=== PATIENT | male | born 1950 | race Caucasian/White ===

== ENCOUNTER 2020-12-03 11:32 | Inpatient (IN) ==
[2020-12-03] MEDS ORDERED: *HR* OxyCODONE/APAP 5/325 TABLET PO ONE (15:30)
[2020-12-03] MEDS ORDERED: hydrALAZINE 10 MG TABLET PO PRN (17:52)
[2020-12-03] MEDS: 0.9 % Sodium Chloride 1,000 ML IVC SCH (18:29)
[2020-12-03] MEDS: *HR* FentaNYL (PF) 100 MCG/2 ML VIAL IVP PRN (18:29)
[2020-12-03] MEDS ORDERED: Perflutren Lipid Microsphere 1.3 ML in 0.9 % Sodium Chloride 8.7 ML IVP PRN (18:31)
[2020-12-03] MEDS ORDERED: amLODIPine 5 MG TABLET PO SCH (18:45)
[2020-12-04] MEDS: *HR* Heparin 5,000 UNIT/ML VIAL SQ SCH ×3 (01:10→16:55)
[2020-12-04] MEDS ORDERED: *HR* OxyCODONE/APAP 5/325 TABLET PO ONE (01:23)
[2020-12-04] MEDS: 0.9 % Sodium Chloride 1,000 ML IVC SCH ×3 (03:24→22:40)
[2020-12-04 05:12] LABS: Basophils % 0.2 %; Hematocrit 36.2 % (37.5-50.1); Hemoglobin 11.4 g/dL (12.9-16.9); Immature Granulocytes % 0.5 % (0-4); Lymphocytes # 0.6 K/mcL (0.6-4.6); Lymphocytes % 6.8 %; Mean Corpuscular HGB Conc 31.5 g/dL (31.6-35.5); Mean Corpuscular Hemoglobin 25.7 pg (28.0-33.3); Mean Corpuscular Volume 81.7 fL (83.0-100.0); Mean Platelet Volume 9.8 fL (9.4-12.4); Monocytes # 0.3 K/mcL (0.0-1.3); Monocytes % 3.6 %; Neutrophils # 7.8 K/mcL (1.6-8.9); Platelet Count 148 K/mcL (140-400); Red Blood Count 4.43 M/mcL (4.19-5.50); Red Cell Distribution Width 15.2 % (11.5-14.5); Segmented Neutrophils % 88.9 %; White Blood Count 8.8 K/mcL (4.3-11.1)
[2020-12-04 05:26] LABS: BUN/Creatinine Ratio 23 (6-26); Blood Urea Nitrogen 19 mg/dL (8-23); Calcium 7.8 mg/dL (8.6-10.3); Carbon Dioxide 21 mEq/L (23-29); Chloride 107 mEq/L (98-107); Glucose 98 mg/dL (70-105); Osmolality,Calculated 286 (280-300); Phosphorous 3.1 mg/dL (2.7-4.5); Potassium 3.7 mEq/L (3.5-5.1); Sodium 137 mEq/L (136-145); eGFR For African Americans > 60 (> 60); eGFR For Non-African Americans > 60 (> 60)
[2020-12-04] MEDS ORDERED: atenoloL 25 MG TABLET PO SCH (09:00)
[2020-12-04] MEDS ORDERED: cloNIDine HCL 0.1 MG TABLET PO PRN (09:00)
[2020-12-04] MEDS ORDERED: amLODIPine 5 MG TABLET PO SCH (09:00)
[2020-12-04] MEDS ORDERED: Perflutren Lipid Microsphere 1.3 ML in 0.9 % Sodium Chloride 8.7 ML IVP PRN (09:01)
[2020-12-04] MEDS: *HR* FentaNYL (PF) 100 MCG/2 ML VIAL IVP PRN (10:58)
[2020-12-04] MEDS ORDERED: Petrolatum, White OINT.PACK TP PRN ×2 (15:59→19:47)
[2020-12-04] MEDS ORDERED: Famotidine 20 MG/2 ML VIAL ONE (17:24)
[2020-12-04] MEDS ORDERED: Acetaminophen IV 1,000 MG/100 ML BAG IVPB ONE (17:24)
[2020-12-04] MEDS ORDERED: Lidocaine -MPF 2% 2 ML VIAL ONE (17:30)
[2020-12-04] MEDS ORDERED: *HR* FentaNYL (PF) 100 MCG/2 ML VIAL ONE ×2 (17:30→18:20)
[2020-12-04] MEDS ORDERED: Dexamethasone 4 MG/ML VIAL ONE (17:30)
[2020-12-04] MEDS ORDERED: Ondansetron 4 MG/2 ML VIAL ONE (17:30)
[2020-12-04] MEDS ORDERED: *HR* Propofol 200 MG/20 ML VIAL IVP ONE (17:31)
[2020-12-04] MEDS ORDERED: EPHEDrine 50 MG/ML VIAL ONE (18:02)
[2020-12-04] MEDS ORDERED: ceFAZolin 2,000 MG in 0.9 % Sodium Chloride 100 ML IVPB ONE (18:16)
[2020-12-04 19:28] LABS: Hematocrit 25.3 % (37.5-50.1)
[2020-12-04 19:29] LABS: Hemoglobin 8.1 g/dL (12.9-16.9)
[2020-12-04] MEDS ORDERED: Naloxone 0.4 MG/ML INJ IVP PRN (19:47)
[2020-12-05] MEDS: *HR* OxyCODONE/APAP 5/325 TABLET PO PRN (00:19)
[2020-12-05] MEDS: CeFAZolin 2 GM/120 ML BAG IVPB SCH ×2 (00:25→07:52)
[2020-12-05 07:23] LABS: Hematocrit 34.5 % (37.5-50.1); Hemoglobin 10.9 g/dL (12.9-16.9)
[2020-12-05 07:43] LABS: BUN/Creatinine Ratio 25 (6-26); Blood Urea Nitrogen 18 mg/dL (8-23); Calcium 7.6 mg/dL (8.6-10.3); Carbon Dioxide 24 mEq/L (23-29); Chloride 105 mEq/L (98-107); Glucose 102 mg/dL (70-105); Osmolality,Calculated 284 (280-300); Potassium 3.8 mEq/L (3.5-5.1); Sodium 136 mEq/L (136-145); eGFR For African Americans > 60 (> 60); eGFR For Non-African Americans > 60 (> 60)
[2020-12-05] MEDS: atenoloL 25 MG TABLET PO SCH (07:53)
[2020-12-05] MEDS: amLODIPine 5 MG TABLET PO SCH (07:53)
[2020-12-05] MEDS: 0.9 % Sodium Chloride 1,000 ML IVC SCH (13:26)
[2020-12-05] MEDS: *HR* OxyCODONE Immed Rel 5 MG TABLET PO PRN (15:37)
[2020-12-05] MEDS: Aspirin Enteric Coated 81 MG Tablet PO SCH (15:37)
[2020-12-06 01:12] LABS: Hematocrit 32.2 % (37.5-50.1); Hemoglobin 10.5 g/dL (12.9-16.9); Mean Corpuscular HGB Conc 32.6 g/dL (31.6-35.5); Mean Corpuscular Hemoglobin 26.9 pg (28.0-33.3); Mean Corpuscular Volume 82.4 fL (83.0-100.0); Mean Platelet Volume 10.1 fL (9.4-12.4); Platelet Count 131 K/mcL (140-400); Red Blood Count 3.91 M/mcL (4.19-5.50); Red Cell Distribution Width 15.3 % (11.5-14.5); White Blood Count 7.9 K/mcL (4.3-11.1)
[2020-12-06 01:26] LABS: BUN/Creatinine Ratio 24 (6-26); Blood Urea Nitrogen 18 mg/dL (8-23); Calcium 7.3 mg/dL (8.6-10.3); Carbon Dioxide 25 mEq/L (23-29); Chloride 106 mEq/L (98-107); Glucose 96 mg/dL (70-105); Osmolality,Calculated 286 (280-300); Potassium 3.2 mEq/L (3.5-5.1); Sodium 137 mEq/L (136-145); eGFR For African Americans > 60 (> 60); eGFR For Non-African Americans > 60 (> 60)
[2020-12-06] MEDS: *HR* OxyCODONE/APAP 5/325 TABLET PO PRN (04:16)
[2020-12-06] MEDS ORDERED: Potassium Chloride 20 MEQ, Lidocaine 1% 2 ML in 0.9 % Sodium Chloride 250 ML IVPB ONE (07:55)
[2020-12-06] MEDS ORDERED: Potassium Chloride Elixir 20 MEQ/15 ML UDC PO SCH (08:45)
[2020-12-06] MEDS: amLODIPine 5 MG TABLET PO SCH (09:00)
[2020-12-06] MEDS: Aspirin Enteric Coated 81 MG Tablet PO SCH (09:00)
[2020-12-06] MEDS: atenoloL 25 MG TABLET PO SCH (09:01)
[2020-12-06 11:03] VITALS: BP 117/64
[2020-12-06 13:43] LABS: Adenovirus Not Detected (Not Detect); Bordetella Pertussis Not Detected (Not Detect); Chlamydophila pneumoniae Not Detected (Not Detect); Coronavirus 229E Not Detected (Not Detect); Coronavirus HKU1 Not Detected (Not Detect); Coronavirus NL63 Not Detected (Not Detect); Coronavirus OC43 Not Detected (Not Detect); Human Metapneumovirus Not Detected (Not Detect); Human Rhinovirus/Enterovirus Not Detected (Not Detect); Influenza A Subtype 2009 H1 Not Detected (Not Detect); Influenza B Not Detected (Not Detect); Mycoplasma pneumoniae Not Detected (Not Detect); Parainfluenza Virus 1 Not Detected (Not Detect); Parainfluenza Virus 2 Not Detected (Not Detect); Parainfluenza Virus 3 Not Detected (Not Detect); Parainfluenza Virus 4 Not Detected (Not Detect); Respiratory Syncytial Virus Not Detected (Not Detect); SARS-CoV-2 Not Detected (Not Detect)
[2020-12-06] MEDS: *HR* OxyCODONE Immed Rel 5 MG TABLET PO PRN (14:46)
== END 2020-12-06 14:59 | DRG 481 ==
LOC: 3NENU
PROVIDERS: ADMIT Orthopaedic Surgery; ATTEND Orthopaedic Surgery

== ENCOUNTER 2022-05-13 14:24 | Observation (INO) ==
[2022-05-13] MEDS ORDERED: Perflutren Lipid Microsphere 1.3 ML in 0.9 % Sodium Chloride 8.7 ML IVP PRN (15:28)
[2022-05-13] MEDS ORDERED: Ondansetron 4 MG/2 ML VIAL IVP PRN (16:30)
[2022-05-13] MEDS ORDERED: Naloxone 0.4 MG/ML INJ IVP PRN (16:30)
[2022-05-13] MEDS ORDERED: *HR* Labetalol 20 MG/4 ML SYRINGE IVP PRN (16:33)
[2022-05-13] MEDS: Acetaminophen 325 MG TABLET PO PRN (22:27)
[2022-05-14] MEDS: Melatonin 3 MG TABLET PO PRN ×2 (00:29→19:45)
[2022-05-14 08:09] LABS: Basophils # 0.1 K/mcL (0.0-0.2); Basophils % 1.1 %; Eosinophils % 0.6 %; Hematocrit 43.8 % (37.5-50.1); Hemoglobin 13.9 g/dL (12.9-16.9); Immature Granulocytes % 0.2 % (0-4); Lymphocytes # 1.1 K/mcL (0.6-4.6); Lymphocytes % 23.1 %; Mean Corpuscular HGB Conc 31.7 g/dL (31.6-35.5); Mean Corpuscular Hemoglobin 26.3 pg (28.0-33.3); Mean Corpuscular Volume 82.8 fL (83.0-100.0); Mean Platelet Volume 9.9 fL (9.4-12.4); Monocytes # 0.3 K/mcL (0.0-1.3); Monocytes % 6.2 %; Neutrophils # 3.2 K/mcL (1.6-8.9); Platelet Count 178 K/mcL (140-400); Red Blood Count 5.29 M/mcL (4.19-5.50); Red Cell Distribution Width 15.4 % (11.5-14.5); Segmented Neutrophils % 68.8 %; White Blood Count 4.7 K/mcL (4.3-11.1)
[2022-05-14 08:19] LABS: INR 1.1; Prothrombin Time 11.8 Seconds (9.4-12.1)
[2022-05-14 08:28] LABS: Chol/HDL Ratio 3.8 (0-4.9)
[2022-05-14 08:29] LABS: BUN/Creatinine Ratio 16 (6-26); Blood Urea Nitrogen 14 mg/dL (8-23); Calcium 8.9 mg/dL (8.6-10.3); Carbon Dioxide 23 mEq/L (23-29); Chloride 102 mEq/L (98-107); Glucose 85 mg/dL (70-105); Osmolality,Calculated 282 (280-300); Potassium 3.8 mEq/L (3.5-5.1); Sodium 136 mEq/L (136-145); eGFR For African Americans > 60 (> 60); eGFR For Non-African Americans > 60 (> 60)
[2022-05-14 08:52] LABS: Folate 8.3 ng/mL (3.0-16.0)
[2022-05-14] MEDS: Aspirin Enteric Coated 81 MG Tablet PO SCH (08:56)
[2022-05-14 10:42] LABS: Estimated Average Glucose 117 mg/dl; Hemoglobin A1C 5.7 %
[2022-05-14] MEDS: atenoloL 25 MG TABLET PO SCH ×2 (14:43→14:48)
[2022-05-14] MEDS: Acetaminophen 325 MG TABLET PO PRN (19:45)
[2022-05-15 03:22] VITALS: O2SAT 100
[2022-05-15 06:10] LABS: Basophils % 0.4 %; Eosinophils # 0.1 K/mcL (0.0-0.6); Eosinophils % 1.1 %; Hematocrit 38.8 % (37.5-50.1); Hemoglobin 12.9 g/dL (12.9-16.9); Immature Granulocytes % 0.2 % (0-4); Lymphocytes % 22.2 %; Mean Corpuscular HGB Conc 33.2 g/dL (31.6-35.5); Mean Corpuscular Volume 81.3 fL (83.0-100.0); Mean Platelet Volume 9.9 fL (9.4-12.4); Monocytes # 0.4 K/mcL (0.0-1.3); Monocytes % 7.7 %; Neutrophils # 3.2 K/mcL (1.6-8.9); Platelet Count 155 K/mcL (140-400); Red Blood Count 4.77 M/mcL (4.19-5.50); Red Cell Distribution Width 15.5 % (11.5-14.5); Segmented Neutrophils % 68.4 %; White Blood Count 4.7 K/mcL (4.3-11.1)
[2022-05-15 06:29] LABS: BUN/Creatinine Ratio 24 (6-26); Blood Urea Nitrogen 25 mg/dL (8-23); Calcium 8.5 mg/dL (8.6-10.3); Carbon Dioxide 24 mEq/L (23-29); Chloride 104 mEq/L (98-107); Glucose 99 mg/dL (70-105); Osmolality,Calculated 284 (280-300); Potassium 4.1 mEq/L (3.5-5.1); Sodium 135 mEq/L (136-145); eGFR For African Americans > 60 (> 60); eGFR For Non-African Americans > 60 (> 60)
[2022-05-15] MEDS: atenoloL 25 MG TABLET PO SCH (08:28)
[2022-05-15] MEDS: Aspirin Enteric Coated 81 MG Tablet PO SCH (08:28)
[2022-05-15 09:53] VITALS: PULSE 69; TEMP 97.5
[2022-05-15 10:56] VITALS: BP 166/80
== END 2022-05-15 12:51 | disposition home or self-care (01) ==
LOC: 3BNU 14:24 → EMEROOARM 14:24 → 3BNU 18:43
PROVIDERS: ADMIT Internal Medicine; ATTEND Internal Medicine

== ENCOUNTER 2022-05-19 16:15 | Inpatient (IN) ==
[2022-05-19] MEDS ORDERED: Naloxone 0.4 MG/ML INJ IVP PRN (18:11)
[2022-05-19] MEDS ORDERED: Ondansetron 4 MG/2 ML VIAL IVP PRN (18:11)
[2022-05-19] MEDS: Acetaminophen 325 MG TABLET PO PRN (22:18)
[2022-05-19 22:32] LABS: Bilirubin,Urine Negative (Negative); Blood,Urine Trace (Negative); Clarity,Urine Clear (Clear); Color,Urine Yellow (Yellow); Glucose,Urine (UA) Normal (Normal); Hyaline Casts,Urine Many per lpf (None Seen); Ketones,Urine Trace mg/dL (Negative); Leukocyte Esterase,Urine Negative (Negative); Mucus,Urine Few per lpf (None-Few); Nitrite,Urine Negative (Negative); PH,Urine 5.5 pH Units (5.0-8.0); Protein,Urine 30 mg/dL (Neg-Trace); Specific Gravity,Urine 1.028 (1.010-1.025); Squamous Epithelial Cell,Urine Few per hpf (None-Few); WBC,Urine 0-3 per hpf (0-3)
[2022-05-20] MEDS ORDERED: 0.9 % Sodium Chloride 500 ML IVC ONE (02:22)
[2022-05-20 05:46] LABS: Basophils % 0.7 %; Eosinophils # 0.1 K/mcL (0.0-0.6); Eosinophils % 1.6 %; Hematocrit 39.5 % (37.5-50.1); Hemoglobin 13.1 g/dL (12.9-16.9); Immature Granulocytes % 0.3 % (0-4); Lymphocytes # 1.1 K/mcL (0.6-4.6); Lymphocytes % 17.6 %; Mean Corpuscular HGB Conc 33.2 g/dL (31.6-35.5); Mean Corpuscular Hemoglobin 27.2 pg (28.0-33.3); Mean Platelet Volume 10.2 fL (9.4-12.4); Monocytes # 0.5 K/mcL (0.0-1.3); Monocytes % 7.4 %; Neutrophils # 4.4 K/mcL (1.6-8.9); Platelet Count 173 K/mcL (140-400); Red Blood Count 4.82 M/mcL (4.19-5.50); Red Cell Distribution Width 15.2 % (11.5-14.5); Segmented Neutrophils % 72.4 %; White Blood Count 6.1 K/mcL (4.3-11.1)
[2022-05-20 06:00] LABS: INR 1.2; Prothrombin Time 13.5 Seconds (9.4-12.1)
[2022-05-20 06:04] LABS: BUN/Creatinine Ratio 31 (6-26); Blood Urea Nitrogen 29 mg/dL (8-23); Calcium 8.3 mg/dL (8.6-10.3); Carbon Dioxide 24 mEq/L (23-29); Chloride 104 mEq/L (98-107); Glucose 88 mg/dL (70-105); Magnesium 2.1 mg/dL (1.6-2.6); Osmolality,Calculated 285 (280-300); Phosphorous 3.5 mg/dL (2.7-4.5); Potassium 3.8 mEq/L (3.5-5.1); Sodium 135 mEq/L (136-145); eGFR For African Americans > 60 (> 60); eGFR For Non-African Americans > 60 (> 60)
[2022-05-20 06:17] LABS: Thyroid Stimulating Hormone 4.334 mcIU/mL (0.340-5.600)
[2022-05-20] MEDS ORDERED: atenoloL 25 MG TABLET PO SCH (09:00)
[2022-05-20] MEDS ORDERED: *HR* Enoxaparin 30 MG/0.3 ML SYRINGE SQ SCH (09:00)
[2022-05-20] MEDS: Cyanocobalamin (B-12) 1,000 MCG TABLET PO SCH (09:18)
[2022-05-20] MEDS: Aspirin 81 MG TAB.CHEW PO SCH (09:18)
[2022-05-20] MEDS: Acetaminophen 325 MG TABLET PO PRN (18:13)
[2022-05-21] MEDS: Melatonin 3 MG TABLET PO SCH ×2 (01:19→20:05)
[2022-05-21 06:51] LABS: Basophils % 0.7 %; Eosinophils # 0.1 K/mcL (0.0-0.6); Hematocrit 39.2 % (37.5-50.1); Hemoglobin 12.7 g/dL (12.9-16.9); Immature Granulocytes % 0.2 % (0-4); Lymphocytes % 21.8 %; Mean Corpuscular HGB Conc 32.4 g/dL (31.6-35.5); Mean Corpuscular Volume 83.2 fL (83.0-100.0); Mean Platelet Volume 10.1 fL (9.4-12.4); Monocytes # 0.3 K/mcL (0.0-1.3); Neutrophils # 3.1 K/mcL (1.6-8.9); Platelet Count 178 K/mcL (140-400); Red Blood Count 4.71 M/mcL (4.19-5.50); Red Cell Distribution Width 15.1 % (11.5-14.5); Segmented Neutrophils % 68.3 %; White Blood Count 4.6 K/mcL (4.3-11.1)
[2022-05-21 07:10] LABS: Alanine Aminotransferase 6 Units/L (7-52); Albumin 3.7 g/dL (3.5-5.7); Albumin/Globulin Ratio 1.5 (1.1-2.2); Alkaline Phosphatase 59 Units/L (34-104); Aspartate Amino Transferase 11 Units/L (13-39); BUN/Creatinine Ratio 26 (6-26); Bilirubin,Total 0.8 mg/dL (0.3-1.0); Blood Urea Nitrogen 24 mg/dL (8-23); Carbon Dioxide 25 mEq/L (23-29); Chloride 105 mEq/L (98-107); Globulin 2.5 g/dL (2.4-3.5); Glucose 90 mg/dL (70-105); Osmolality,Calculated 288 (280-300); Potassium 3.9 mEq/L (3.5-5.1); Sodium 137 mEq/L (136-145); Total Protein 6.2 g/dL (6.4-8.9); eGFR For African Americans > 60 (> 60); eGFR For Non-African Americans > 60 (> 60)
[2022-05-21] MEDS ORDERED: *HR* Enoxaparin 40 MG/0.4 ML SYRINGE SQ SCH (09:00)
[2022-05-21] MEDS: Aspirin 81 MG TAB.CHEW PO SCH (09:28)
[2022-05-21] MEDS: Cyanocobalamin (B-12) 1,000 MCG TABLET PO SCH (09:29)
[2022-05-21] MEDS ORDERED: Albuterol 2.5 MG/3 ML NEBULIZER IH PRN (10:04)
[2022-05-21] MEDS ORDERED: *HR* FentaNYL (PF) 100 MCG/2 ML VIAL IVP PRN (10:04)
[2022-05-21] MEDS ORDERED: *HR* HYDROmorphone PF 0.5 MG/0.5 ML SYRINGE IVP PRN (10:04)
[2022-05-21] MEDS ORDERED: *HR* Labetalol 20 MG/4 ML SYRINGE IVP STA (13:35)
[2022-05-21] MEDS ORDERED: Perflutren Lipid Microsphere 1.3 ML in 0.9 % Sodium Chloride 8.7 ML IVP PRN (14:25)
[2022-05-21] MEDS: Acetaminophen 325 MG TABLET PO PRN (20:06)
[2022-05-22] MEDS ORDERED: Regadenoson 0.4 MG/5 ML SYRINGE IVP ONE (07:19)
[2022-05-22] MEDS: Cyanocobalamin (B-12) 1,000 MCG TABLET PO SCH (08:18)
[2022-05-22] MEDS: Aspirin 81 MG TAB.CHEW PO SCH (08:18)
[2022-05-22] MEDS: amLODIPine 5 MG TABLET PO SCH (08:18)
[2022-05-22 08:24] LABS: Basophils % 0.7 %; Eosinophils # 0.1 K/mcL (0.0-0.6); Hematocrit 42.2 % (37.5-50.1); Hemoglobin 13.9 g/dL (12.9-16.9); Immature Granulocytes % 0.3 % (0-4); Lymphocytes # 1.1 K/mcL (0.6-4.6); Mean Corpuscular HGB Conc 32.9 g/dL (31.6-35.5); Mean Corpuscular Hemoglobin 26.9 pg (28.0-33.3); Mean Corpuscular Volume 81.6 fL (83.0-100.0); Mean Platelet Volume 9.5 fL (9.4-12.4); Monocytes # 0.3 K/mcL (0.0-1.3); Monocytes % 5.5 %; Neutrophils # 4.5 K/mcL (1.6-8.9); Platelet Count 188 K/mcL (140-400); Red Blood Count 5.17 M/mcL (4.19-5.50); Segmented Neutrophils % 74.5 %
[2022-05-22 08:43] LABS: BUN/Creatinine Ratio 24 (6-26); Blood Urea Nitrogen 20 mg/dL (8-23); Calcium 8.4 mg/dL (8.6-10.3); Carbon Dioxide 21 mEq/L (23-29); Chloride 103 mEq/L (98-107); Glucose 90 mg/dL (70-105); Osmolality,Calculated 280 (280-300); Potassium 3.9 mEq/L (3.5-5.1); Sodium 134 mEq/L (136-145); eGFR For African Americans > 60 (> 60); eGFR For Non-African Americans > 60 (> 60)
[2022-05-22] MEDS ORDERED: amLODIPine 5 MG TABLET PO SCH (09:00)
[2022-05-22] MEDS: Melatonin 3 MG TABLET PO SCH (20:50)
[2022-05-23 06:15] LABS: BUN/Creatinine Ratio 19 (6-26); Blood Urea Nitrogen 17 mg/dL (8-23); Calcium 8.3 mg/dL (8.6-10.3); Carbon Dioxide 25 mEq/L (23-29); Chloride 103 mEq/L (98-107); Glucose 87 mg/dL (70-105); Osmolality,Calculated 283 (280-300); Sodium 136 mEq/L (136-145); eGFR For African Americans > 60 (> 60); eGFR For Non-African Americans > 60 (> 60)
[2022-05-23] MEDS ORDERED: Sennosides/Docusate Sodium TABLET PO ONE (07:34)
[2022-05-23] MEDS ORDERED: polyethylene glycoL 3350 17 GM POWD.PACK PO PRN (07:34)
[2022-05-23] MEDS: amLODIPine 5 MG TABLET PO SCH (08:58)
[2022-05-23] MEDS: Aspirin 81 MG TAB.CHEW PO SCH (08:58)
[2022-05-23] MEDS: Cyanocobalamin (B-12) 1,000 MCG TABLET PO SCH (08:58)
[2022-05-23] MEDS: Melatonin 3 MG TABLET PO SCH (20:49)
[2022-05-23] MEDS: Acetaminophen 325 MG TABLET PO PRN (20:49)
[2022-05-24] MEDS ORDERED: amLODIPine 5 MG TABLET PO SCH (09:00)
[2022-05-24] MEDS: Cyanocobalamin (B-12) 1,000 MCG TABLET PO SCH (09:12)
[2022-05-24] MEDS: Aspirin 81 MG TAB.CHEW PO SCH (09:12)
[2022-05-24 10:36] LABS: BUN/Creatinine Ratio 21 (6-26); Blood Urea Nitrogen 19 mg/dL (8-23); Calcium 8.7 mg/dL (8.6-10.3); Carbon Dioxide 26 mEq/L (23-29); Chloride 98 mEq/L (98-107); Glucose 90 mg/dL (70-105); Osmolality,Calculated 280 (280-300); Sodium 134 mEq/L (136-145); eGFR For African Americans > 60 (> 60); eGFR For Non-African Americans > 60 (> 60)
[2022-05-24] MEDS ORDERED: *HR* Meperidine 25 MG/ML SYRINGE IVP PRN (15:58)
[2022-05-24] MEDS ORDERED: *HR* HYDROmorphone PF 0.5 MG/0.5 ML SYRINGE IVP PRN (15:58)
[2022-05-24] MEDS ORDERED: flumazeniL 0.5 MG/5 ML VIAL IVP PRN (15:58)
[2022-05-24] MEDS ORDERED: Albuterol 2.5 MG/3 ML NEBULIZER IH PRN (15:58)
[2022-05-24] MEDS ORDERED: Racepinephrine Neb 0.5 ML VIAL IH PRN (15:58)
[2022-05-24] MEDS ORDERED: Ondansetron 4 MG/2 ML VIAL IVP PRN (15:58)
[2022-05-24] MEDS ORDERED: *HR* FentaNYL (PF) 100 MCG/2 ML VIAL IVP PRN (15:58)
[2022-05-24] MEDS ORDERED: Ipratropium Neb 0.5 MG NEBULIZER IH PRN (15:58)
[2022-05-24] MEDS ORDERED: CeFAZolin Syr 2,000MG/20 ML 2,000 MG/20 ML SYRINGE IVPB ONE (16:23)
[2022-05-24] MEDS ORDERED: Ringers Solution, Lactated 1,000 ML IVC SCH (16:30)
[2022-05-24] MEDS ORDERED: Iopamidol - 300 50 ML VIAL ONE (16:35)
[2022-05-24] MEDS ORDERED: *HR* Propofol 200 MG/20 ML VIAL IVP ONE (18:25)
[2022-05-24] MEDS ORDERED: *HR* Rocuronium Bromide 50 MG/5 ML VIAL ONE (18:25)
[2022-05-24] MEDS ORDERED: Sugammadex Sodium 200 MG/2 ML VIAL IV ONE (18:25)
[2022-05-24] MEDS ORDERED: Lacri-Lube 3.5 GM TUBE ONE (18:25)
[2022-05-24] MEDS ORDERED: Ondansetron 4 MG/2 ML VIAL ONE (18:25)
[2022-05-24] MEDS ORDERED: Lidocaine -MPF 2% 5 ML VIAL ONE (18:25)
[2022-05-24] MEDS ORDERED: *HR* FentaNYL (PF) 100 MCG/2 ML VIAL ONE (18:38)
[2022-05-24 18:59] LABS: Metanephrine, Plasma 0.22 nmol/L (0.00-0.49)
[2022-05-24] MEDS ORDERED: *HR* Metoprolol 5 MG/5 ML VIAL IVP ONE (19:11)
[2022-05-24] MEDS ORDERED: *HR* Labetalol 20 MG/4 ML SYRINGE IVP ONE (19:20)
[2022-05-24] MEDS: *HR* HYDROmorphone (PF) 1 MG/ML SYRINGE IVP PRN (21:47)
[2022-05-24] MEDS: Melatonin 3 MG TABLET PO SCH (22:08)
[2022-05-25] MEDS: *HR* HYDROmorphone (PF) 1 MG/ML SYRINGE IVP PRN (05:16)
[2022-05-25 05:58] LABS: Basophils # 0.1 K/mcL (0.0-0.2); Basophils % 0.5 %; Eosinophils # 0.1 K/mcL (0.0-0.6); Eosinophils % 0.5 %; Hematocrit 41.6 % (37.5-50.1); Hemoglobin 13.6 g/dL (12.9-16.9); Immature Granulocytes % 0.4 % (0-4); Lymphocytes # 0.9 K/mcL (0.6-4.6); Lymphocytes % 9.3 %; Mean Corpuscular HGB Conc 32.7 g/dL (31.6-35.5); Mean Corpuscular Hemoglobin 26.8 pg (28.0-33.3); Mean Corpuscular Volume 81.9 fL (83.0-100.0); Mean Platelet Volume 9.9 fL (9.4-12.4); Monocytes # 0.4 K/mcL (0.0-1.3); Monocytes % 4.1 %; Neutrophils # 8.2 K/mcL (1.6-8.9); Platelet Count 189 K/mcL (140-400); Red Blood Count 5.08 M/mcL (4.19-5.50); Red Cell Distribution Width 15.3 % (11.5-14.5); Segmented Neutrophils % 85.2 %
[2022-05-25 06:01] LABS: White Blood Count 9.6 K/mcL (4.3-11.1)
[2022-05-25] MEDS ORDERED: Ringers Solution, Lactated 1,000 ML IVC SCH (06:59)
[2022-05-25] MEDS ORDERED: *HR* OxyCODONE Immed Rel 5 MG TABLET PO PRN (06:59)
[2022-05-25 07:15] LABS: BUN/Creatinine Ratio 22 (6-26); Blood Urea Nitrogen 19 mg/dL (8-23); Calcium 8.4 mg/dL (8.6-10.3); Carbon Dioxide 19 mEq/L (23-29); Chloride 101 mEq/L (98-107); Glucose 96 mg/dL (70-105); Osmolality,Calculated 276 (280-300); Phosphorous 4.3 mg/dL (2.7-4.5); Potassium 4.7 mEq/L (3.5-5.1); Sodium 132 mEq/L (136-145); eGFR For African Americans > 60 (> 60); eGFR For Non-African Americans > 60 (> 60)
[2022-05-25] MEDS: amLODIPine 5 MG TABLET PO SCH (09:26)
[2022-05-25] MEDS: CeFAZolin 2 GM/120 ML BAG IVPB SCH ×2 (09:29→15:28)
[2022-05-25] MEDS: Cyanocobalamin (B-12) 1,000 MCG TABLET PO SCH (09:32)
[2022-05-25] MEDS: Ondansetron 4 MG/2 ML VIAL IVP PRN ×2 (12:52→18:27)
[2022-05-25] MEDS ORDERED: Metoclopramide 10 MG/2 ML VIAL IVP ONE (14:22)
[2022-05-25 17:16] LABS: Urine Collection Volume NOT PROVIDED mL
[2022-05-25] MEDS ORDERED: Metoclopramide 10 MG/2 ML VIAL IVP PRN (18:33)
[2022-05-26 07:20] VITALS: TEMP 97.7
[2022-05-26] MEDS ORDERED: lisinopriL 20 MG TABLET PO SCH (09:00)
[2022-05-26] MEDS: amLODIPine 5 MG TABLET PO SCH (09:13)
[2022-05-26] MEDS: Cyanocobalamin (B-12) 1,000 MCG TABLET PO SCH (09:13)
[2022-05-26 11:35] VITALS: BP 93/45; PULSE 73; O2SAT 95
[2022-05-26 13:15] LABS: Adenovirus Not Detected (Not Detect); Bordetella Pertussis Not Detected (Not Detect); Chlamydophila pneumoniae Not Detected (Not Detect); Coronavirus 229E Not Detected (Not Detect); Coronavirus HKU1 Not Detected (Not Detect); Coronavirus NL63 Not Detected (Not Detect); Coronavirus OC43 Not Detected (Not Detect); Human Metapneumovirus Not Detected (Not Detect); Human Rhinovirus/Enterovirus Not Detected (Not Detect); Influenza A Subtype 2009 H1 Not Detected (Not Detect); Influenza B Not Detected (Not Detect); Mycoplasma pneumoniae Not Detected (Not Detect); Parainfluenza Virus 1 Not Detected (Not Detect); Parainfluenza Virus 2 Not Detected (Not Detect); Parainfluenza Virus 3 Not Detected (Not Detect); Parainfluenza Virus 4 Not Detected (Not Detect); Respiratory Syncytial Virus Not Detected (Not Detect); SARS-CoV-2 Not Detected (Not Detect)
== END 2022-05-26 16:26 | disposition home health service (06) | DRG 516 ==
LOC: 2NENU → SUATTDRO 18:00
PROVIDERS: ADMIT Family Medicine; ATTEND Internal Medicine